=== PATIENT | male | born 1975 | race Caucasian/White ===

== ENCOUNTER 2023-11-23 04:45 | Day surgery (SDC) | payer OTHER ==
[~2023-11-23] VITALS: Ht 172.7 cm; Wt 88.6 kg
[2023-11-23] VITALS (261 sets, daily range): BP systolic 75–144; BP diastolic 47–88
[2023-11-23] MEDS ORDERED: cloNIDine HCL 0.1 MG/TAB PO PRN (07:30)
[2023-11-23] MEDS ORDERED: PANTOPRAZOLE SODIUM Sesquihydr 40 MG/TAB PO PRN (07:30)
[2023-11-23] MEDS ORDERED: SCOPOLAMINE 1.5 MG DIS TD PRN (07:30)
[2023-11-23] MEDS ORDERED: CYANOCOBALAMIN 500 MCG/TAB ( B12) PO PRN (07:30)
[2023-11-23] MEDS ORDERED: ALBUTEROL SULFATE 2.5 MG VIAL IN PRN (07:30)
[2023-11-23] MEDS ORDERED: LACTATED RINGER'S 1,000 ML IV PRN ×3 (07:30→19:00)
[2023-11-23] MEDS ORDERED: diazePAM 5 MG/TAB PO PRN ×2 (07:30→08:30)
[2023-11-23] MEDS ORDERED: FAMOTIDINE 20 MG/TAB PO PRN (07:30)
[2023-11-23] MEDS ORDERED: ASCORBIC ACID 4,000 MG in SODIUM CHLORIDE 0.9% 1,000 ML IV SCH (08:00)
[2023-11-23 08:44] LABS: BASO% 0.8 % (0-3); EOS% 13.5 % (0-8); HEMATOCRIT 45.7 % (39.0-50.0); IMMATURE GRANULOCYTES 0.1 % (0.0-5.0); LYMPH% 24.8 % (15-41); MEAN CELL VOLUME 89.1 fL CALC (80.0-100.0); MEAN CORPUSCULAR HGB 29.2 pG CALC (26.0-32.0); MEAN CORPUSCULAR HGB CONC 32.8 g/dL CAL (32.0-36.0); MONO% 6.9 % (2-13); NEUT# 3.81 thou/uL (1.82-7.42); NEUT% 53.9 % (42-76); RED BLOOD COUNT 5.13 mill/uL (4.70-6.10); RED CELL DISTRI WIDTH 12.8 % (11.5-15.5)
[2023-11-23] MEDS ORDERED: XANAX2 MG PO (09:09)
[2023-11-23 10:10] LABS: ALKALINE PHOSPHATASE 48 u/l (38-126); ANION GAP 9 (6-22 (CALC)); BILIRUBIN, TOTAL 0.3 mg/dL (0.2-1.3); BUN 14 mg/dL (9-20); BUN/CREATININE RATIO 15 (12-20 (CALC)); CARBON DIOXIDE 30 mmol/l (22-30); CHLORIDE 104 mmol/l (95-108); CREATININE 0.9 mg/dL (0.7-1.3); GFR FOR AFR.AMER. > 60 ML/MIN (>=60 (CALC)); GFR OTHER RACES > 60 ML/MIN (>=60 (CALC)); POTASSIUM 4.6 mmol/l (3.5-5.1); SGOT/AST 33 u/l (17-59); SODIUM 139 mmol/l (137-146); TOTAL PROTEIN 6.6 g/dL (6.3-8.2)
[2023-11-23] MEDS ORDERED: OCTREOTIDE ACETATE 100 MCG/VIAL SDV SC PRN (10:15)
[2023-11-23] MEDS ORDERED: cloNIDine HYDROCHLORIDE 100 MCG/ML 10 ML INJ IV PRN (10:15)
[2023-11-23] MEDS ORDERED: PROPOFOL 10 MG/ML 100ML VIAL IV PRN (10:15)
[2023-11-23] MEDS ORDERED: LIDOCAINE HCL 1% (10MG/ML) 100 MG/10 ML MDV VT PRN ×2 (10:15)
[2023-11-23] MEDS ORDERED: PROPOFOL 100 ML IV PRN (10:15)
[2023-11-23] MEDS ORDERED: MIDAZOLAM HCL 2 MG/2 ML VIAL IV PRN (10:15)
[2023-11-23] MEDS ORDERED: THIAMINE HCL 100 MG/ML 2ML VIAL IV PRN (10:15)
[2023-11-23] MEDS ORDERED: LIDOCAINE HCL 1% (10MG/ML) 100 MG/10 ML MDV IV PRN ×2 (10:15→16:55)
[2023-11-23] MEDS ORDERED: NALTREXONE HCL 50 MG/TAB VT PRN (10:15)
[2023-11-23] MEDS ORDERED: STERILE WATER FOR IRRIGATION 1,000 ML BTL IR PRN (10:15)
[2023-11-23] MEDS ORDERED: ROCURONIUM BROMIDE 10 MG/ML 5ML VIAL IV PRN (10:15)
[2023-11-23] MEDS ORDERED: ONDANSETRON HCl 4 MG/2 ML SDV IV PRN ×3 (10:15→19:00)
[2023-11-23] MEDS ORDERED: SUCCINYLCHOLINE CHLORIDE 20 MG/ML 10ML VIAL IV PRN (10:15)
[2023-11-23] MEDS ORDERED: cloNIDine HCL 0.1 MG/TAB VT PRN (10:15)
[2023-11-23] MEDS ORDERED: DiphenhydrAMINE HCL 50 MG/ML SDV IV PRN (10:15)
[2023-11-23] MEDS ORDERED: MAGNESIUM SULFATE HEPTAHYDRATE 100 ML IV PRN (10:15)
[2023-11-23] MEDS ORDERED: diazePAM 5 MG/TAB VT PRN (10:15)
[2023-11-23] MEDS ORDERED: DEXAMETHASONE SOD. PHOSPHATE 10 MG/ML VIAL IV PRN (10:15)
[2023-11-23] MEDS ORDERED: SODIUM CHLORIDE 0.9% 250 ML IV ONE (10:36)
[2023-11-23] MEDS ORDERED: PHENYLEPHRINE HCL 10 MG/ML VIAL ONE (10:36)
[2023-11-23] MEDS ORDERED: NALTREXONE50 MG PO (13:34)
[2023-11-23] MEDS ORDERED: KLONOPIN2 MG PO (13:35)
[2023-11-23] MEDS ORDERED: CLONIDINE0.1 MG PO (13:35)
[2023-11-23] MEDS ORDERED: KETOROLAC TROMETHAMINE 30 MG/ML SDV IV PRN ×2 (16:50→19:00)
[2023-11-23] MEDS ORDERED: ACETAMINOPHEN 1,000 MG/100 ML VIAL IV PRN ×2 (16:50→19:00)
[2023-11-23] MEDS ORDERED: diazePAM 10 MG/2 ML VIAL IV PRN (17:00)
[2023-11-23] MEDS ORDERED: PATIENT' OWN MED CONTROLLED 1 EA DOSE IV PRN (17:00)
[2023-11-23] MEDS ORDERED: HALOPERIDOL LACTATE 5 MG/ML SDV IV PRN (19:00)
[2023-11-23] MEDS ORDERED: PROMETHAZINE HCL 12.5 MG in SODIUM CHLORIDE 0.9% 50 ML IV PRN (19:00)
[2023-11-23] MEDS ORDERED: DEXAMETHASONE SODIUM PHOSPHATE PF 10 MG/ML SDV IV PRN (19:00)
[2023-11-23] MEDS ORDERED: PROMETHAZINE HCL 25 MG in SODIUM CHLORIDE 0.9% 50 ML IV PRN (19:00)
[2023-11-23] MEDS ORDERED: ACETAMINOPHEN 500 MG TAB PO PRN (19:00)
[2023-11-23] MEDS ORDERED: clonazePAM 1 MG/TAB PO SCH (23:00)
[2023-11-23] MEDS ORDERED: cloNIDine HCL 0.1 MG/TAB PO SCH (23:00)
[2023-11-24] MEDS ORDERED: clonazePAM 1 MG/TAB PO PRN ×2 (04:00→08:00)
[2023-11-24] MEDS ORDERED: cloNIDine HCL 0.1 MG/TAB PO PRN (04:00)
[2023-11-24 04:46] LABS: BASO% 0.2 % (0-3); EOS% 0.1 % (0-8); HEMATOCRIT 43.9 % (39.0-50.0); HEMOGLOBIN 14.7 g/dl (14.0-18.0); IMMATURE GRANULOCYTES 0.3 % (0.0-5.0); LYMPH% 6.1 % (15-41); MEAN CELL VOLUME 86.1 fL CALC (80.0-100.0); MEAN CORPUSCULAR HGB 28.8 pG CALC (26.0-32.0); MEAN CORPUSCULAR HGB CONC 33.5 g/dL CAL (32.0-36.0); MONO% 2.5 % (2-13); NEUT# 11.96 thou/uL (1.82-7.42); NEUT% 90.8 % (42-76); RED BLOOD COUNT 5.1 mill/uL (4.70-6.10); RED CELL DISTRI WIDTH 12.3 % (11.5-15.5)
[2023-11-24 04:57] LABS: ALBUMIN 4.2 g/dL (3.2-5.0); ALKALINE PHOSPHATASE 47 u/l (38-126); BUN 17 mg/dL (9-20); BUN/CREATININE RATIO 18 (12-20 (CALC)); CHLORIDE 104 mmol/l (95-108); CREATININE 0.9 mg/dL (0.7-1.3); GFR FOR AFR.AMER. > 60 ML/MIN (>=60 (CALC)); GFR OTHER RACES > 60 ML/MIN (>=60 (CALC)); POTASSIUM 4.3 mmol/l (3.5-5.1); SGOT/AST 46 u/l (17-59); SODIUM 135 mmol/l (137-146)
[2023-11-24 04:58] LABS: ANION GAP 13 (6-22 (CALC)); BILIRUBIN, TOTAL 0.7 mg/dL (0.2-1.3); CARBON DIOXIDE 22 mmol/l (22-30)
[2023-11-24 05:19] VITALS: BP 121/63
[2023-11-24] MEDS ORDERED: ACETAMINOPHEN 325 MG/TAB PO SCH (08:00)
[2023-11-24] MEDS ORDERED: NALTREXONE HCL 50 MG/TAB PO SCH ×2 (08:00→14:30)
[2023-11-24] MEDS ORDERED: cloNIDine HCL 0.1 MG/TAB PO SCH (08:00)
[2023-11-24] MEDS ORDERED: PANTOPRAZOLE SODIUM Sesquihydr 40 MG/TAB PO SCH (08:00)
[2023-11-24 08:31] VITALS: BP 118/62
[2023-11-24 08:33] VITALS: BP 118/62
[2023-11-24] MEDS ORDERED: ACETAMINOPHEN 500 MG TAB PO PRN (09:00)
[2023-11-24] MEDS ORDERED: Cholecalciferol 2,000 UNIT/TAB PO PRN (09:00)
[2023-11-24] MEDS ORDERED: MAGNESIUM OXIDE 400 MG/TAB PO PRN (09:00)
[2023-11-24] MEDS ORDERED: KETOROLAC TROMETHAMINE 30 MG/ML SDV IV PRN (14:05)
== END 2023-11-24 16:32 | disposition home or self-care (01) | DRG 897 ==
LOC: MS2 04:45 → ANR 04:45 → MS2 05:43 → ANR 10:00 → MS2 18:35 → ANR 11-24 16:32
PROVIDERS: ATTEND Anesthesiology Critical Care Medicine
DX: F11.20 Opioid dependence, uncomplicated (principal)
CPT/HCPCS: J0131; J2354; J3475